=== PATIENT | female | born 1980 | race Hispanic/Latino ===

== ENCOUNTER 2017-04-03 18:31 | Emergency (ER) | payer BC, OTHER ==
[~2017-04-03] VITALS: Ht 167.6 cm; Wt 105.2 kg
[~2017-04-03 18:31] MED LIST: HUMULIN N100 UNIT/1 SUB-Q; PRENATAL CAPSU1 EACH PO
[2017-04-03] MEDS ORDERED: CIPRO500 MG PO (18:51)
[2017-04-03] MEDS ORDERED: KEFLEX500 MG PO (19:49)
== END 2017-04-03 20:05 | disposition home or self-care (01) ==
LOC: ED 18:31
DX: L27.0 Generalized skin eruption due to drugs and medicaments taken internally (principal); T36.8X5A Adverse effect of other systemic antibiotics, initial encounter; N39.0 Urinary tract infection, site not specified; Z79.2 Long term (current) use of antibiotics; Z88.1 Allergy status to other antibiotic agents
CPT/HCPCS: 99283

== ENCOUNTER 2017-11-01 14:59 | Emergency (ER) | payer OTHER ==
[~2017-11-01] VITALS: Ht 167.6 cm; Wt 104.3 kg
[~2017-11-01 14:59] MED LIST changes: +CIPRO500 MG PO; +KEFLEX500 MG PO
[2017-11-01] MEDS ORDERED: PRENATAL + DHA1 EACH PO (15:11)
[2017-11-01] MEDS ORDERED: PROMETHAZINE HC25 M1 PO (19:01)
--- NOTE | 2017-11-02 09:07 | EKG ---
[facility] [address] [facility] [place] [address] Signed Normal sinus rhythm Normal ECG No previous ECGs available Confirmed by JENNIFER RODRIGUEZ MD ([id number]) on 11/02/2017 9:07:14 AM Electronically Signed By: JENNIFER RODRIGUEZ MD 11/02/17 0907 PATIENT NAME: SUSANNA MOREJON Electrocardiogram DATE OF : 84 PHYSICIAN: JENNIFER RODRIGUEZ MD REPORT #: [id number] REPORT IS CONFIDENTIAL AND NOT TO BE RELEASED WITHOUT AUTHORIZATION
== END 2017-11-01 19:40 | disposition home or self-care (01) ==
LOC: ED 14:59
DX: O99.89 Other specified diseases and conditions complicating pregnancy, childbirth and the puerperium (principal); R42 Dizziness and giddiness; R11.0 Nausea; Z88.1 Allergy status to other antibiotic agents; Z79.899 Other long term (current) drug therapy; Z3A.13 13 weeks gestation of pregnancy
CPT/HCPCS: 80053; 81001; 84702; 85025; 87088; 93005; 93010; 96361; 96374; 99284; J2550; J7030

== ENCOUNTER 2021-01-30 18:28 | Emergency (ER) | payer OTHER ==
[~2021-01-30] VITALS: Ht 165.1 cm; Wt 95.0 kg
[~2021-01-30 18:28] MED LIST changes: +PRENATAL + DHA1 EACH PO; +PROMETHAZINE HC25 M1 PO
== END 2021-01-30 23:20 | disposition home or self-care (01) ==
LOC: ED 18:28
DX: F07.81 Postconcussional syndrome (principal); Z88.1 Allergy status to other antibiotic agents
CPT/HCPCS: 70450; 72125; 99284-25